=== PATIENT | male | born 1950 | race Caucasian/White ===

== ENCOUNTER 2019-03-24 12:32 | Outpatient (CLI) | payer MEDICARE | END 2019-03-24 23:59 | disposition home or self-care (01) | LOC: VAS 12:32 | PROVIDERS: ATTEND Surgery | DX: I73.89 Other specified peripheral vascular diseases (principal); I70.201 Unspecified atherosclerosis of native arteries of extremities, right leg; Z87.891 Personal history of nicotine dependence | CPT/HCPCS: 93922; 93925 ==

== ENCOUNTER 2019-05-21 08:15 | Day surgery (SDC) | payer MEDICARE ==
[2019-05-21] VITALS (14 sets, daily range): BP systolic 129–175; BP diastolic 70–99
[~2019-05-21] VITALS: Ht 188 cm; Wt 102.9 kg
[~2019-05-21 08:15] MED LIST: ASPI-1264 PO; CARV-50 PO; HYDR-4353 PO; POTA500P42 PO; SAW160CA3
[2019-05-21] MEDS ORDERED: nitroGLYCERIN 0.4mg SUBLingual tab SL PRN (08:40)
[2019-05-21] MEDS ORDERED: LORazepam 0.5 MG tablet PO PRN (08:40)
[2019-05-21] MEDS ORDERED: diphenhydrAMINE 25mg capsule PO PRN (08:40)
[2019-05-21] MEDS ORDERED: normal saline 1,000 ML IV SCH (08:40)
[2019-05-21] MEDS ORDERED: OMEG-79 PO (08:42)
[2019-05-21] MEDS ORDERED: OMEG1CAP PO (08:42)
[2019-05-21] MEDS ORDERED: GINS100C5 (08:42)
[2019-05-21] MEDS ORDERED: GARL100T (08:42)
[2019-05-21] MEDS ORDERED: CHOL20004 PO (08:42)
[2019-05-21] MEDS ORDERED: UBID30CA11 PO (08:42)
[2019-05-21] MEDS ORDERED: GINK120T4 PO (08:42)
[2019-05-21 09:20] LABS: BASOPHILS # (AUTO) 0.1 X10'3 (0-0.2); BASOPHILS % (AUTO) 1.3 % (0-1); EOSINOPHILS # (AUTO) 0.5 X10'3 (0-0.9); HEMATOCRIT 38.6 % (42.0-52.0); HEMOGLOBIN 12.9 g/dl (14.0-17.9); LYMPHOCYTES # (AUTO) 1.2 X10'3 (1.1-4.8); MEAN CORPUSCULAR HEMOGLOBIN 27.4 PG (27.0-31.0); MEAN CORPUSCULAR HGB CONC 33.5 g/dL (33.0-36.5); MEAN CORPUSCULAR VOLUME 81.7 FL (78-98); MEAN PLATELET VOLUME 9.1 FL (7.4-10.4); MONOCYTES # (AUTO) 0.4 X10'3 (0-0.9); NEUTROPHILS # (AUTO) 4.3 X10'3 (1.8-7.7); NEUTROPHILS % (AUTO) 66.7 % (42-75); PLATELET COUNT 183 X10'3 (140-440); RED BLOOD COUNT 4.73 X10'6 (4.70-6.10); RED CELL DISTRIBUTION WIDTH 14.5 % (11.5-14.5); WHITE BLOOD COUNT 6.5 X10'3 (4.5-11.0)
[2019-05-21 09:33] LABS: ALBUMIN 3.6 G/DL (3.4-5.0); ANION GAP 10 (8-16); BLOOD UREA NITROGEN 27 MG/DL (7-18); BUN/CREATININE RATIO 28.7 (5.4-32.0); CALCIUM 8.9 MG/DL (8.5-10.1); CHLORIDE 107 MMOL/L (99-107); CREATININE 0.94 MG/DL (0.60-1.10); GLUCOSE 137 MG/DL (70-104); POTASSIUM 4.4 MMOL/L (3.5-5.1); SODIUM 145 MMOL/L (135-145); TOTAL CARBON DIOXIDE 27.9 MMOL/L (24-32); eGFR 79 ML/MIN
[2019-05-21 09:36] LABS: PARTIAL THROMBOPLASTIN TIME 26 SECONDS (22-32)
[2019-05-21] MEDS ORDERED: LIDOcaine 1% (10mg/ml)w/preservative injection 20ml MDV ONE (11:01)
[2019-05-21] MEDS ORDERED: midazolam 2 mg/2 ml injection ONE (11:01)
[2019-05-21] MEDS ORDERED: iohexol 350 MG/ML 50ML vial IV ONE ×3 (11:01→11:31)
[2019-05-21] MEDS ORDERED: fentaNYL/PF 50MCG/1 ML 2ML syringe ONE (11:01)
[2019-05-21] MEDS ORDERED: iohexol 350MG/ML 100ml bottle IV ONE (11:01)
[2019-05-21] MEDS ORDERED: proCHLORperazine 10 MG/2 ml inj IV PRN (12:35)
[2019-05-21] MEDS ORDERED: ondansetron/PF 4mg/2ml inj IV PRN (12:35)
[2019-05-21] MEDS ORDERED: HYDROcodone/acetaminophen 5mg/325mg tablet PO PRN (12:35)
[2019-05-21] MEDS ORDERED: HYDROcodone/acetaminophen 10/325mg tab PO PRN (12:35)
[2019-05-21] MEDS ORDERED: normal saline 1000ml 1,000 ML IV SCH (12:35)
[2019-05-21] MEDS ORDERED: OXAZEpam 15mg capsule PO PRN (12:35)
== END 2019-05-21 18:00 | disposition home or self-care (01) ==
LOC: SSTAY O 08:15
PROVIDERS: ATTEND Internal Medicine Cardiovascular Disease
DX: Z01.818 Encounter for other preprocedural examination (principal); I25.10 Atherosclerotic heart disease of native coronary artery without angina pectoris; I48.20 Chronic atrial fibrillation, unspecified; E78.5 Hyperlipidemia, unspecified; I10 Essential (primary) hypertension; J44.9 Chronic obstructive pulmonary disease, unspecified; R91.8 Other nonspecific abnormal finding of lung field; I71.4 Abdominal aortic aneurysm, without rupture; I73.9 Peripheral vascular disease, unspecified; Z98.890 Other specified postprocedural states; Z90.49 Acquired absence of other specified parts of digestive tract; Z88.5 Allergy status to narcotic agent; Z79.82 Long term (current) use of aspirin; Z79.899 Other long term (current) drug therapy; F17.210 Nicotine dependence, cigarettes, uncomplicated; Z72.89 Other problems related to lifestyle; Z88.8 Allergy status to other drugs, medicaments and biological substances
CPT/HCPCS: 36415; 71046; 71250; 80048; 85025; 85610; 85730; 93005; 93458; C1769; J1644; J2001; J2250; J3010; J7030; Q0163; Q9967; 99152; 99153; A4620; A6258; C1760

== ENCOUNTER 2020-01-01 09:06 | Day surgery (SDC) | payer MEDICARE ==
[~2020-01-01] VITALS: Ht 182.9 cm; Wt 95.2 kg
[~2020-01-01 09:06] MED LIST changes: +ALLO100T PO; +APIX5TAB3 PO; +ATOR40TA PO; +BUDE10.2 INH; +CHOL500049 PO; +FLO0.4C PO; +FURO-150 PO; -HYDR-4353 PO; +IPRA3AMP9 IH; +POLY17PO10 PO; +POTA10TA36 PO; -POTA500P42 PO; -SAW160CA3; +SENN-25 PO
[2020-01-01 09:15] VITALS: BP 188/90
[2020-01-01] MEDS ORDERED: AMLO2.5T2 PO (10:11)
[2020-01-01] MEDS ORDERED: POTA10CA44 PO (10:11)
[2020-01-01] MEDS ORDERED: ALB0.5UD IH (10:11)
[2020-01-01] MEDS ORDERED: HYDR-4353 PO (10:12)
[2020-01-01 10:30] VITALS: BP 188/90
[2020-01-01 10:40] VITALS: BP 184/88
[2020-01-01 10:55] VITALS: BP 182/88
== END 2020-01-01 11:00 | disposition home or self-care (01) ==
LOC: SSTAY O 09:06
PROVIDERS: ATTEND Radiology Vascular & Interventional Radiology
DX: J90 Pleural effusion, not elsewhere classified (principal); I10 Essential (primary) hypertension; I25.10 Atherosclerotic heart disease of native coronary artery without angina pectoris; M10.9 Gout, unspecified; Z88.5 Allergy status to narcotic agent; Z79.899 Other long term (current) drug therapy; Z79.82 Long term (current) use of aspirin; Z80.3 Family history of malignant neoplasm of breast; Z82.49 Family history of ischemic heart disease and other diseases of the circulatory system
CPT/HCPCS: 32555; 71045